=== PATIENT | female | born 1995 | race African-American/Black ===

== ENCOUNTER 2017-05-21 07:01 | Emergency (ER) | payer OTHER ==
[2017-05-21] MEDS ORDERED: IBUPROFEN 400 MG TAB ONE (07:31)
[2017-05-21] MEDS ORDERED: DEXAMETHASONE 4 MG/ML VIAL ONE (07:31)
--- NOTE | 2017-05-21 09:14 | EDPHYS ---
Physician Documentation [facility] Name: Glenna Beaver Age: 21 yrs Sex: Female : 1995 Arrival Date: 05/21/2017 Time: 07:04 Bed 16 Private MD: ED Physician Remi Yang HPI: 05/21 08:39 This 21 yrs old Black Female presents to ER via Ambulatory with complaints of Sore pm1 Throat. 08:39 The patient presents with sore throat. The patient describes throat pain as constant, pm1 scratchy. Onset: The symptoms/episode began/occurred 2 day(s) ago. Severity of symptoms: in the emergency department the symptoms are actually worse. Modifying factors: The symptoms are alleviated by nothing, the symptoms are aggravated by foods, swallowing, Patient's oral intake status: good Denies contact with similarly ill indivduals. Associated signs and symptoms: Pertinent positives: earache, Pertinent negatives chills, cough, fever, vomiting. The patient has experienced similar episodes in the past, a few times. The patient has not recently seen a physician. 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 - Social history:: Smoking status: Patient/guardian denies using tobacco. ROS: 08:50 Constitutional: Negative for fever, chills, and weight loss, Eyes: Negative for injury, pm1 pain, redness, and discharge. 08:50 Neck: Negative for injury, pain, and swelling, Cardiovascular: Negative for chest pain, palpitations, and edema, Respiratory: Negative for shortness of breath, cough, wheezing, and pleuritic chest pain, Abdomen/GI: Negative for abdominal pain, nausea, vomiting, diarrhea, and constipation, Back: Negative for injury and pain, : Negative for injury, bleeding, discharge, and swelling, MS/Extremity: Negative for injury and deformity, Skin: Negative for injury, rash, and discoloration, Neuro: Negative for headache, weakness, numbness, tingling, and seizure. 08:50 ENT: Positive for sore throat, Left ear pain, Negative for drainage from ear(s), dental pain, difficulty swallowing, difficulty handling secretions, hoarseness. Exam: 08:50 Constitutional: This is a well developed, well nourished patient who is awake, alert, pm1 and in no acute distress. Head/Face: Normocephalic, atraumatic. Eyes: Pupils equal round and reactive to light, extra-ocular motions intact. Lids and lashes normal. Conjunctiva and sclera are non-icteric and not injected. Cornea within normal limits. Periorbital areas with no swelling, redness, or edema. 08:50 Neck: Trachea midline, no thyromegaly or masses palpated, and no cervical lymphadenopathy. Supple, full range of motion without nuchal rigidity, or vertebral point tenderness. No Meningismus. Chest/axilla: Normal chest wall appearance and motion. Nontender with no deformity. No lesions are appreciated. Cardiovascular: Regular rate and rhythm with a normal S1 and S2. No gallops, murmurs, or rubs. Normal PMI, no JVD. No pulse deficits. Respiratory: Lungs have equal breath sounds bilaterally, clear to auscultation and percussion. No rales, rhonchi or wheezes noted. No increased work of breathing, no retractions or nasal flaring. Abdomen/GI: Soft, non-tender, with normal bowel sounds. No distension or tympany. No guarding or rebound. No evidence of tenderness throughout. Back: No spinal tenderness. No costovertebral tenderness. Full range of motion. Skin: Warm, dry with normal turgor. Normal color with no rashes, no lesions, and no evidence of cellulitis. MS/ Extremity: Pulses equal, no cyanosis. Neurovascular intact. Full, normal range of motion. 08:50 ENT: External ear(s): are unremarkable, Ear canal(s): are normal, TM's: are normal, Nose: is normal, Mouth: is normal, Posterior pharynx: Tonsils: bilaterally enlarged, with erythema, no exudate, no ulcerations, peritonsillar mass, is not appreciated, pooling of secretions, is not appreciated. 08:50 Neuro: Orientation: is normal, Motor: moves all fours, Gait: is steady, at a normal pace, without difficulty. Vital Signs: 07:12 BP 142 / 91; Pulse 105; Resp 16; Temp 99.3(O); Pulse Ox 97% on R/A; Weight 122.47 kg; ss Height 5 ft. 6 in. (167.64 cm); Pain 8/10; 09:27 BP 138 / 89; Pulse 95; Resp 18; Pulse Ox 100% on R/A; ss 07:12 Body Mass Index 43.58 (122.47 kg, 167.64 cm) ss MDM: 07:15 Patient medically screened. pm1 09:11 Data reviewed: vital signs. Data interpreted: Pulse oximetry: on room air is 97 %. pm1 Interpretation: normal. Counseling: I had a detailed discussion with the patient and/or guardian regarding: the historical points, exam findings, and any diagnostic results supporting the discharge/admit diagnosis, the need for outpatient follow up, to return to the emergency department if symptoms worsen or persist or if there are any questions or concerns that arise at home. 05/21 07:27 Order name: Strep; Complete Time: 08:31 pm1 05/21 07:27 Order name: [place] Screen Profile; Complete Time: 09:10 pm1 04 07:27 Order name: Flu; Complete Time: 08:31 pm1 Administered Medications: 07:27 Drug: Decadron 10 mg Route: IM; Site: left deltoid; hj 08:56 Follow up: Response: No adverse reaction hj 07:27 Drug: Ibuprofen 800 mg Route: PO; hj 08:57 Follow up: Response: No adverse reaction Disposition: 05/21/17 09:14 Discharged to Home. Impression: Streptococcal pharyngitis, Infectious mononucleosis. - Condition is Stable. - Discharge Instructions: Infectious Mononucleosis, Salt Water Gargle, Strep Throat. - Prescriptions for Zithromax Z- Ta 250 mg Oral Tablet - take 1 tablet by ORAL route as directed for 5 days Day 1 - take two (2) tablets one time. Day 2, 3, 4 , 5 take one (1) tablet once daily.; 6 tablet. - Medication Reconciliation Form, Thank You Letter, Antibiotic Education form. - Follow up: Emergency Department; When: As needed; Reason: Worsening of condition. Follow up: Private Physician; When: 2 - 3 days; Reason: Recheck today's complaints, Continuance of care, Re-evaluation by your physician. - Problem is new. - Symptoms have improved. Addendum: 05/26/2017 06:21 Co-signature as Attending Physician, Remi Yang MD. g s Signatures: Dispatcher [employer] Lissett Tim RN RN ss Ibrahima Gallegos RN RN hj Donal Dacosta, EXPELLER WORKER EXPELLER WORKER pm1 Remi Yang MD MD
--- NOTE | 2017-05-21 09:14 | ER ---
Nurse's Notes [facility] Name: Glenna Beaver Age: 21 yrs Sex: Female : 1995 Arrival Date: 05/21/2017 Time: 07:04 Bed 16 Private MD: Diagnosis: Streptococcal pharyngitis;Infectious mononucleosis Presentation: 05/21 07:09 Presenting complaint: Patient states: pain and swelling to back of throat x 2 days. ss Transition of care: patient was not received from another setting of care. Onset of symptoms was May 19, 2017. Care prior to arrival: None. 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 - Social history:: Smoking status: Patient/guardian denies using tobacco. Screenin:14 Abuse screen: Denies threats or abuse. Denies injuries from another. Nutritional hj screening: No deficits noted. Tuberculosis screening: No symptoms or risk factors identified. Fall Risk None identified. Assessment: 07:15 Pain: Complains of pain in throat. Respiratory: Airway is patent Respiratory effort is hj even, unlabored, Respiratory pattern is regular, symmetrical, Breath sounds are clear. EENT: Throat. 07:15 General: Appears in no apparent distress. uncomfortable, Behavior is calm, cooperative, hj appropriate for age. Neuro: Level of Consciousness is awake, alert, obeys commands, Oriented to person, place, time, situation, Appropriate for age. Cardiovascular: Capillary refill < 3 seconds Patient's skin is warm and dry. GI: No signs and/or symptoms were reported involving the gastrointestinal system. : No signs and/or symptoms were reported regarding the genitourinary system. Derm: Musculoskeletal: No signs and/or symptoms reported regarding the musculoskeletal system. Vital Signs: 07:12 BP 142 / 91; Pulse 105; Resp 16; Temp 99.3(O); Pulse Ox 97% on R/A; Weight 122.47 kg; ss Height 5 ft. 6 in. (167.64 cm); Pain 8/10; 09:27 BP 138 / 89; Pulse 95; Resp 18; Pulse Ox 100% on R/A; ss 07:12 Body Mass Index 43.58 (122.47 kg, 167.64 cm) ED Course: 07:04 Patient arrived in ED. es 07:11 Triage completed. 07:12 Arm band placed on right wrist. 07:13 Ibrahima Gallegos RN is Primary Nurse. 07:15 Donal Dacosta NP is PHCP. pm1 07:15 Remi Yang MD is Attending Physician. pm1 07:15 Patient has correct armband on for positive identification. Bed in low position. Call light in reach. Side rails up X 1. Adult w/ patient. 07:50 Flu and/or RSV swab sent to lab. Strep swab sent to lab. Inserted saline lock: 22 gauge mh5 in left antecubital area, using aseptic technique. Blood collected. 07:52 Flu Sent. 5 07:52 [place] Screen Profile Sent. 5 07:52 Strep Sent. 5 09:27 No provider procedures requiring assistance completed. IV discontinued, intact, bleeding controlled, No redness/swelling at site. Pressure dressing applied. Administered Medications: 07:27 Drug: Decadron 10 mg Route: IM; Site: left deltoid; hj 08:56 Follow up: Response: No adverse reaction 07:27 Drug: Ibuprofen 800 mg Route: PO; hj 08:57 Follow up: Response: No adverse reaction Outcome: 09:14 Discharge ordered by . pm1 09:27 Discharged to home ambulatory, with family. 09:27 Condition: stable 09:27 Discharge instructions given to patient, family, Instructed on discharge instructions, follow up and referral plans. medication usage, Demonstrated understanding of instructions, follow-up care, medications, Prescriptions given X 1. 09:27 Patient left the ED. Signatures: Estrella Sotomayor Shelby, RN RN Ibrahima Gallegos RN RN Donal Dacosta NP PUMP OPERATOR BYPRODUCTS pm1 Alicia Mccollum 5
[2017-05-21] MEDS ORDERED: DEXAMETHASONE 10 MG/ML VIAL ONE (09:17)
[2017-05-21] MEDS ORDERED: NA CHLORIDE 0.9% 1,000 ML ONE (09:17)
[2017-05-21] MEDS ORDERED: DIPHENHYDRAMINE 50 MG/ML VIAL ONE (09:17)
[2017-05-21] MEDS ORDERED: EPINEPHRINE/PF 1 MG/ML AMP ONE (09:17)
[2017-05-21 09:40] VITALS: BP 138/89; O2SAT 100
[2017-05-21 09:41] VITALS: TEMP 99.3
== END 2017-05-21 09:27 | disposition home or self-care (01) ==
LOC: ER 07:01
DX: J02.0 Streptococcal pharyngitis (principal); B27.90 Infectious mononucleosis, unspecified without complication; Z88.0 Allergy status to penicillin
CPT/HCPCS: 36415; 86308; 87081; 87804; 96372; 99284; J0171; J1100; J7030

== ENCOUNTER 2017-07-18 08:16 | Emergency (ER) | payer OTHER ==
[2017-07-18] MEDS ORDERED: HYDROCOD 2.5mg-ACETAMIN 108mg/5mL Soln ONE (09:15)
[2017-07-18] MEDS ORDERED: DEXAMETHASONE 10 MG/ML VIAL ONE (09:15)
[2017-07-18] MEDS ORDERED: AZITHROMYCIN 250 MG TAB ONE (09:15)
--- NOTE | 2017-07-18 10:06 | ER ---
Nurse's Notes [facility] Name: Glenna Beaver Age: 22 yrs Sex: Female : 1995 Arrival Date: 07/18/2017 Time: 08:18 Bed 12 Private MD: None, None Diagnosis: Acute pharyngitis Presentation: 07/18 08:21 Presenting complaint: Mother states: " She has had mono before and we think she may ph have it again." Pt reports sore throat and fever, denies N/V. Transition of care: patient was not received from another setting of care. Onset of symptoms was July 18, 2017. Risk Assessment: Do you want to hurt yourself or someone else? Patient reports no desire to harm self or others. Initial Sepsis Screen: Does the patient meet any 2 criteria? No. Patient's initial sepsis screen is negative. Does the patient have a suspected source of infection? No. Patient's initial sepsis screen is negative. Care prior to arrival: None. 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 - Social history:: Smoking status: Patient/guardian denies using tobacco. - Ebola Screening: : No symptoms or risks identified at this time. Screenin:24 Abuse screen: Denies threats or abuse. Denies injuries from another. Nutritional iw screening: No deficits noted. Tuberculosis screening: No symptoms or risk factors identified. Fall Risk None identified. Assessment: 09:23 General: Appears in no apparent distress. Behavior is calm, cooperative. Pain: iw Complains of pain in throat. Neuro: Level of Consciousness is awake, alert, obeys commands, Oriented to person, place, time, situation, Moves all extremities. Full function. Cardiovascular: Patient's skin is warm and dry. Respiratory: Airway is patent Respiratory effort is even, unlabored, Breath sounds are clear bilaterally. EENT: Throat has enlarged tonsils bilaterally with gag reflex present. 09:47 Reassessment: Patient appears in no apparent distress at this time. pt has had minimal iw improvement in pain, was able to swallow Zithromax pills. 10:11 Reassessment: pt able to drink 2 oz of apple juice, Samara, RUBBER COMPOUNDER notified, wants to hold iw patient until she can drink the full 4 oz of apple juice, pt is not vomiting. 10:50 Reassessment: pt finished drinking apple juice, reports mild improvement in ability to iw swallow. Vital Signs: 08:24 BP 142 / 76; Pulse 89; Resp 22; Temp 99.7; Pulse Ox 98% on R/A; Weight 117.93 kg; ph Height 5 ft. 6 in. (167.64 cm); Pain 10; 08:24 Body Mass Index 41.96 (117.93 kg, 167.64 cm) ph ED Course: 08:18 Patient arrived in ED. mr 08:19 None, None is Private Physician. mr 08:20 [facility] Islas [facility]C [facility] snw 08:20 Saurabh Jones MD is Attending Physician. snw 08:23 Triage completed. ph 08:24 Arm band placed on. ph 08:26 Judith Latif, RN is Primary Nurse. iw 09:48 No provider procedures requiring assistance completed. iw 10:04 Patient has correct armband on for positive identification. Call light in reach. Warm ph blanket given. 10:51 Patient did not have IV access during this emergency room visit. iw Administered Medications: 09:22 Drug: Decadron - Dexamethasone 10 mg {Note: given PO.} Route: IVP; Site: Other; iw 10:40 Follow up: Response: No adverse reaction iw 09:23 Drug: Lortab Liquid 15 ml Route: PO; iw 10:40 Follow up: Response: No adverse reaction; Pain is decreased iw 09:23 Drug: Zithromax 500 mg Route: PO; iw 10:00 Follow up: Response: No adverse reaction iw Outcome: 10:06 Discharge ordered by . snw 10:51 Discharged to home ambulatory, with family. iw 10:51 Condition: good 10:51 Discharge instructions given to patient, Instructed on discharge instructions, follow up and referral plans. medication usage, Demonstrated understanding of instructions, follow-up care, medications, Prescriptions given X 2. 10:51 Patient left the ED. iw Signatures: Samara Islas FNP-C TRUCK MECHANIC-Csnw Alicia Grier Irene, RN RN iw Edith Peter RN RN ph
--- NOTE | 2017-07-18 10:06 | EDPHYS ---
Physician Documentation [facility] Name: Glenna Beaver Age: 22 yrs Sex: Female : 1995 Arrival Date: 07/18/2017 Time: 08:18 Bed 12 Private MD: None, None ED Physician Saurabh Jones HPI: 07/18 09:15 This 22 yrs old Black Female presents to ER via Ambulatory with complaints of Sore snw Throat. 09:15 The patient presents with sore throat, dysphagia. The patient describes throat pain as snw constant, scratchy. Onset: The symptoms/episode began/occurred suddenly, 2 day(s) ago, and became worse and became persistent. Severity of symptoms: At their worst the symptoms were moderate. Associated signs and symptoms: The patient has no apparent associated signs or symptoms. The patient has not experienced similar symptoms in the past. The patient has not recently seen a physician. 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 - Social history:: Smoking status: Patient/guardian denies using tobacco. - Ebola Screening: : No symptoms or risks identified at this time. ROS: 09:15 Constitutional: Negative for fever, chills, and weight loss, Eyes: Negative for injury, snw pain, redness, and discharge, Neck: Negative for injury, pain, and swelling, Cardiovascular: Negative for chest pain, palpitations, and edema, Respiratory: Negative for shortness of breath, cough, wheezing, and pleuritic chest pain, Abdomen/GI: Negative for abdominal pain, nausea, vomiting, diarrhea, and constipation, Back: Negative for injury and pain, : Negative for injury, bleeding, discharge, and swelling, MS/Extremity: Negative for injury and deformity, Skin: Negative for injury, rash, and discoloration, Neuro: Negative for headache, weakness, numbness, tingling, and seizure. 09:15 ENT: Positive for difficulty swallowing, sore throat. Exam: 09:12 Constitutional: This is a well developed, well nourished patient who is awake, alert, snw and in no acute distress. Head/Face: Normocephalic, atraumatic. Eyes: Pupils equal round and reactive to light, extra-ocular motions intact. Lids and lashes normal. Conjunctiva and sclera are non-icteric and not injected. Cornea within normal limits. Periorbital areas with no swelling, redness, or edema. Neck: Trachea midline, no thyromegaly or masses palpated, and no cervical lymphadenopathy. Supple, full range of motion without nuchal rigidity, or vertebral point tenderness. No Meningismus. Chest/axilla: Normal chest wall appearance and motion. Nontender with no deformity. No lesions are appreciated. Cardiovascular: Regular rate and rhythm with a normal S1 and S2. No gallops, murmurs, or rubs. Normal PMI, no JVD. No pulse deficits. Respiratory: Lungs have equal breath sounds bilaterally, clear to auscultation and percussion. No rales, rhonchi or wheezes noted. No increased work of breathing, no retractions or nasal flaring. Abdomen/GI: Soft, non-tender, with normal bowel sounds. No distension or tympany. No guarding or rebound. No evidence of tenderness throughout. Back: No spinal tenderness. No costovertebral tenderness. Full range of motion. Skin: Warm, dry with normal turgor. Normal color with no rashes, no lesions, and no evidence of cellulitis. MS/ Extremity: Pulses equal, no cyanosis. Neurovascular intact. Full, normal range of motion. Neuro: Awake and alert, GCS 15, oriented to person, place, time, and situation. Cranial nerves II-XII grossly intact. Motor strength 5/5 in all extremities. Sensory grossly intact. Cerebellar exam normal. Normal gait. 09:12 ENT: External ear(s): are unremarkable, Ear canal(s): are normal, TM's: are normal, Examination of the other ear shows no obvious abnormality, Nose: is normal, Mouth: is normal, Posterior pharynx: Tonsils: with erythema, swelling, that is moderate, erythema, that is moderate, Voice: is normal. Vital Signs: 08:24 BP 142 / 76; Pulse 89; Resp 22; Temp 99.7; Pulse Ox 98% on R/A; Weight 117.93 kg; ph Height 5 ft. 6 in. (167.64 cm); Pain 10/10; 08:24 Body Mass Index 41.96 (117.93 kg, 167.64 cm) ph MDM: 08:25 Patient medically screened. snw 10:06 Data reviewed: vital signs, nurses notes. Data interpreted: Pulse oximetry: on room air snw is 98 %. Interpretation: normal. Counseling: I had a detailed discussion with the patient and/or guardian regarding: the historical points, exam findings, and any diagnostic results supporting the discharge/admit diagnosis, the presence of at least one elevated blood pressure reading (>120/80) during this emergency department visit, the need for outpatient follow up, to return to the emergency department if symptoms worsen or persist or if there are any questions or concerns that arise at home. Special discussion: I have referred the patient to see his PCP for further evaluation of high blood pressure. Based on the history and exam findings, there is no indication for further emergent testing or inpatient evaluation. I discussed with the patient/guardian the need to see the ENT specialist for further evaluation of the symptoms. I discussed with the patient/guardian the need to see the primary care provider for further evaluation of the symptoms. 07/18 08:20 Order name: Strep; Complete Time: 08:54 snw 07/18 08:52 Order name: Throat Culture EDMS Administered Medications: 09:22 Drug: Decadron - Dexamethasone 10 mg {Note: given PO.} Route: IVP; Site: Other; iw 10:40 Follow up: Response: No adverse reaction iw 09:23 Drug: Lortab Liquid 15 ml Route: PO; iw 10:40 Follow up: Response: No adverse reaction; Pain is decreased iw 09:23 Drug: Zithromax 500 mg Route: PO; iw 10:00 Follow up: Response: No adverse reaction iw Disposition: 18:43 Co-signature as Attending Physician, Saurabh Jones MD I agree with the assessment and kdr plan of care. Disposition: 07/18/17 10:06 Discharged to Home. Impression: Acute pharyngitis. - Condition is Stable. - Discharge Instructions: Pharyngitis, Rehydration, Adult. - Prescriptions for Prednisone 20 mg Oral Tablet - take 1 tablet by ORAL route once daily for 5 days; 5 tablet. Zithromax 500 mg Oral Tablet - take 1 tablet by ORAL route once daily for 5 days; 5 tablet. - Work release form, Medication Reconciliation Form, Thank You Letter, Antibiotic Education, Prescription Opioid Use form. - Follow up: Private Physician; When: 2 - 3 days; Reason: Recheck today's complaints, Continuance of care, Re-evaluation by your physician. Follow up: Emergency Department; When: As needed; Reason: Worsening of condition. Signatures: Dispatcher [employer] EDMS Saurabh Jones MD MD kdr Therrien, Shelly, GAME ARTIST-C GAME ARTIST-Csnw Judith Latif, GREGG RN iw Edith Peter RN RN ph Corrections: (The following items were deleted from the chart) 10:51 10:06 07/18/2017 10:06 Discharged to Home. Impression: Acute pharyngitis. Condition is iw Stable. Forms are Medication Reconciliation Form, Thank You Letter, Antibiotic Education, Prescription Opioid Use. Follow up: Private Physician; When: 2 - 3 days; Reason: Recheck today's complaints, Continuance of care, Re-evaluation by your physician. Follow up: Emergency Department; When: As needed; Reason: Worsening of condition. snw
[2017-07-18 10:56] VITALS: BP 142/76; TEMP 99.7; O2SAT 98
== END 2017-07-18 10:51 | disposition home or self-care (01) ==
LOC: ER 08:16
DX: J02.9 Acute pharyngitis, unspecified (principal); Z88.0 Allergy status to penicillin
CPT/HCPCS: 87070; 87081; 96374; 99283; J1100

== ENCOUNTER 2018-06-25 01:14 | Emergency (ER) | payer OTHER ==
--- NOTE | 2018-06-25 01:55 | ER ---
Nurse's Notes [facility] Name: Glenna Beaver Age: 22 yrs Sex: Female : 1995 Arrival Date: 06/25/2018 Time: 01:17 Bed 14 Private MD: Diagnosis: Cellulitis of chest wall Presentation: 06/25 01:21 Presenting complaint: Patient states: that she is having swelling and redness to piercing to chest. It was originally done 2 months ago. Transition of care: patient was not received from another setting of care. Onset of symptoms was June 24, 2018. Risk Assessment: Do you want to hurt yourself or someone else? Patient reports no desire to harm self or others. Initial Sepsis Screen: Does the patient meet any 2 criteria? No. Patient's initial sepsis screen is negative. Does the patient have a suspected source of infection? No. Patient's initial sepsis screen is negative. Care prior to arrival: None. 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 - Social history:: Smoking status: Patient/guardian denies using tobacco, Patient uses alcohol, occasionally. Patient/guardian denies using street drugs. - Ebola Screening: : Patient negative for fever greater than or equal to 101.5 degrees Fahrenheit, and additional compatible Ebola Virus Disease symptoms Patient denies exposure to infectious person Patient denies travel to an Ebola-affected area in the 21 days before illness onset. Screenin:24 Abuse screen: Denies threats or abuse. Nutritional screening: No deficits noted. fc Tuberculosis screening: No symptoms or risk factors identified. Fall Risk None identified. Assessment: 01:25 General: Appears in no apparent distress. comfortable, Behavior is calm, cooperative, rr5 appropriate for age. Pain: Denies pain. Neuro: Level of Consciousness is awake, alert, obeys commands, Oriented to person, place, time, situation, Appropriate for age. Cardiovascular: Capillary refill < 3 seconds Patient's skin is warm and dry. Respiratory: Airway is patent Respiratory effort is even, unlabored, Respiratory pattern is regular, symmetrical. GI: No signs and/or symptoms were reported involving the gastrointestinal system. : No signs and/or symptoms were reported regarding the genitourinary system. EENT: No signs and/or symptoms were reported regarding the EENT system. Derm: Skin temperature is warm Reports swelling and redness at midsternum due to piercing. Musculoskeletal: Capillary refill < 3 seconds, Range of motion: intact in all extremities. 02:35 Reassessment: Patient appears in no apparent distress at this time. Patient is alert, rr5 oriented x 3, equal unlabored respirations, skin warm/dry/pink. discharge instruction given and explained without complaints made. Patient denies pain at this time. Patient states feeling better. Patient states symptoms have improved. Vital Signs: 01:23 BP 132 / 101; Pulse 87; Resp 16; Temp 98.6(O); Pulse Ox 98% on R/A; Weight 117.93 kg (R); Height 5 ft. 6 in. (167.64 cm) (R); Pain 0/10; 02:33 BP 121 / 80; Pulse 85; Resp 17; Temp 98.5; Pulse Ox 99% on R/A; Pain 0/10; rr5 01:23 Body Mass Index 41.96 (117.93 kg, 167.64 cm) ED Course: 01:17 Patient arrived in ED. am2 01:22 Triage completed. 01:23 Arm band placed on Patient placed in an exam room, on a stretcher. 01:24 Patient has correct armband on for positive identification. Bed in low position. Call light in reach. 01:26 Jose Constantino RN is Primary Nurse. rr5 01:32 Cynthia Dacosta NP is PHCP. pm1 01:32 Evan Mckay MD is Attending Physician. pm1 02:20 foreign body removal at sternum area done aseptically by cynthia BURDEN. rr5 02:37 Patient did not have IV access during this emergency room visit. rr5 Administered Medications: 02:05 Drug: Lidocaine (1 %) 5 mg {Note: given by cynthia BURDEN.} Route: Infiltration; rr5 02:38 Follow up: Response: No adverse reaction rr5 Outcome: 01:54 Discharge ordered by . pm1 02:37 Discharged to home ambulatory. rr5 02:37 Condition: stable 02:37 Discharge instructions given to patient, Instructed on discharge instructions, follow up and referral plans. medication usage, Demonstrated understanding of instructions, follow-up care, medications, Prescriptions given X 1. 02:38 Patient left the ED. rr5 Signatures: Laya Corey RN RN fc Cynthia Dacosta NP AUTOMATIC LOG CUT OFF SAWYER pm1 Mylene Brown 2 Jose Constantino RN RN rr5
--- NOTE | 2018-06-25 01:55 | EDPHYS ---
Physician Documentation [facility] Name: Glenna Beaver Age: 22 yrs Sex: Female : 1995 Arrival Date: 06/25/2018 Time: 01:17 Bed 14 Private MD: ED Physician Evan Mckay HPI: 06/25 02:20 This 22 yrs old Black Female presents to ER via Ambulatory with complaints of piercing pm1 redness/swelling. 02:20 the patient presents with a swollen area of the mid-sternal area. Description: pm1 draining, raised. Onset: The symptoms/episode began/occurred 2 day(s) ago. Possible cause(s): piercing to chest. Associated signs and symptoms: Pertinent positives: drainage, Pertinent negatives: fever. Modifying factors: the symptoms are alleviated by nothing, the symptoms are aggravated by nothing. Severity of symptoms: in the emergency department the symptoms are actually worse. The patient has not experienced similar symptoms in the past. The patient has not recently seen a physician. Piercing to chest placed two months ago. 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 - Social history:: Smoking status: Patient/guardian denies using tobacco, Patient uses alcohol, occasionally. Patient/guardian denies using street drugs. - Ebola Screening: : Patient negative for fever greater than or equal to 101.5 degrees Fahrenheit, and additional compatible Ebola Virus Disease symptoms Patient denies exposure to infectious person Patient denies travel to an Ebola-affected area in the 21 days before illness onset. ROS: 02:20 Constitutional: Negative for fever, chills, and weight loss, Eyes: Negative for injury, pm1 pain, redness, and discharge, ENT: Negative for injury, pain, and discharge, Neck: Negative for injury, pain, and swelling, Cardiovascular: Negative for chest pain, palpitations, and edema, Respiratory: Negative for shortness of breath, cough, wheezing, and pleuritic chest pain, Abdomen/GI: Negative for abdominal pain, nausea, vomiting, diarrhea, and constipation, Back: Negative for injury and pain, MS/Extremity: Negative for injury and deformity. 02:20 Neuro: Negative for headache, weakness, numbness, tingling, and seizure. 02:20 Skin: Positive for swelling, of the mid-sternal area. Exam: 02:20 Constitutional: This is a well developed, well nourished patient who is awake, alert, pm1 and in no acute distress. Head/Face: Normocephalic, atraumatic. Neck: Trachea midline, no thyromegaly or masses palpated, and no cervical lymphadenopathy. Supple, full range of motion without nuchal rigidity, or vertebral point tenderness. No Meningismus. Chest/axilla: Normal chest wall appearance and motion. Nontender with no deformity. No lesions are appreciated. Cardiovascular: Regular rate and rhythm with a normal S1 and S2. No gallops, murmurs, or rubs. Normal PMI, no JVD. No pulse deficits. Respiratory: Lungs have equal breath sounds bilaterally, clear to auscultation and percussion. No rales, rhonchi or wheezes noted. No increased work of breathing, no retractions or nasal flaring. Abdomen/GI: Soft, non-tender, with normal bowel sounds. No distension or tympany. No guarding or rebound. No evidence of tenderness throughout. Back: No spinal tenderness. No costovertebral tenderness. Full range of motion. 02:20 Skin: Appearance: normal except for affected area, hypergranulation of tissue surrounding two piercings to mid-sternal chest. No redness present. No discharge or drainage noted. Vital Signs: 01:23 BP 132 / 101; Pulse 87; Resp 16; Temp 98.6(O); Pulse Ox 98% on R/A; Weight 117.93 kg fc (R); Height 5 ft. 6 in. (167.64 cm) (R); Pain 0/10; 02:33 BP 121 / 80; Pulse 85; Resp 17; Temp 98.5; Pulse Ox 99% on R/A; Pain 0/10; rr5 01:23 Body Mass Index 41.96 (117.93 kg, 167.64 cm) Procedures: 02:17 Foreign Body Removal: stud piercing on chest, from the mid-sternal area, by incising to pm1 remove, using lidocaine 1% without epinephrine to anesthesize the area, Dressinx4s were used to dress the wound, The patient tolerated the removal well. MDM: 01:32 Patient medically screened. pm1 01:46 Data reviewed: vital signs. Data interpreted: Pulse oximetry: on room air is 98 %. pm1 Interpretation: normal. Counseling: I had a detailed discussion with the patient and/or guardian regarding: the historical points, exam findings, and any diagnostic results supporting the discharge/admit diagnosis, the need for outpatient follow up, a general surgeon, a plastic surgeon, to return to the emergency department if symptoms worsen or persist or if there are any questions or concerns that arise at home. 06/25 02:16 Order name: Dressing - Wound; Complete Time: 02:21 pm1 06/25 02:16 Order name: Gloves, Sterile; Complete Time: 02:21 pm1 06/25 02:16 Order name: Setup Suture Tray; Complete Time: 02:21 pm1 Administered Medications: 02:05 Drug: Lidocaine (1 %) 5 mg {Note: given by cynthia BURDEN.} Route: Infiltration; rr5 02:38 Follow up: Response: No adverse reaction rr5 Disposition: 07:54 Co-signature as Attending Physician, Evan Mckay MD I agree with the assessment and wa plan of care. Disposition: 06/25/18 01:54 Discharged to Home. Impression: Cellulitis of chest wall. - Condition is Stable. - Discharge Instructions: Cellulitis, Adult, Foreign Body. - Prescriptions for Bactrim DS 800- 160 mg Oral Tablet - take 1 tablet by ORAL route every 12 hours for 10 days; 20 tablet. - Medication Reconciliation Form, Thank You Letter, Antibiotic Education, Prescription Opioid Use, Work release form form. - Follow up: Emergency Department; When: As needed; Reason: Worsening of condition. Follow up: Private Physician; When: 2 - 3 days; Reason: Recheck today's complaints, Continuance of care, Re-evaluation by your physician. - Problem is new. - Symptoms have improved. Signatures: Laya Corey RN RN Cynthia Juan NP FENCE RIDER pm1 Evan Mckay MD MD wa Roque, Raymond, RN RN rr5 Corrections: (The following items were deleted from the chart) 02:38 01:54 06/25/2018 01:54 Discharged to Home. Impression: Cellulitis of chest wall. rr5 Condition is Stable. Forms are Medication Reconciliation Form, Thank You Letter, Antibiotic Education, Prescription Opioid Use. Follow up: Emergency Department; When: As needed; Reason: Worsening of condition. Follow up: Private Physician; When: 2 - 3 days; Reason: Recheck today's complaints, Continuance of care, Re-evaluation by your physician. Problem is new. Symptoms have improved. pm1
[2018-06-25] MEDS ORDERED: LIDOCAINE 1% MPF 5 ML VIAL ONE (02:11)
[2018-06-25 07:21] VITALS: BP 121/80; TEMP 98.5; O2SAT 99
== END 2018-06-25 02:38 | disposition home or self-care (01) ==
LOC: ER 01:14
PROC: 0HC5XZZ Extirpation of Matter from Chest Skin, External Approach (ICD-10-PCS; principal; 2018-06-25)
DX: L03.313 Cellulitis of chest wall (principal); Z88.0 Allergy status to penicillin
CPT/HCPCS: 99283

== ENCOUNTER 2019-01-16 12:57 | Emergency (ER) | payer OTHER, SELFPAY ==
--- NOTE | 2019-01-16 15:03 | RAD REPORT ---
EXAM DESCRIPTION: RAD - Hand Right 3 View - 01/16/2019 2:07 pm CLINICAL HISTORY: Right hand pain status post injury FINDINGS: No fracture or dislocation is seen.
--- NOTE | 2019-01-16 15:20 | ER ---
Nurse's Notes [facility] Name: Glenna Beaver Age: 23 yrs Sex: Female : 1995 Arrival Date: 01/16/2019 Time: 13:05 Bed 7 Private MD: Diagnosis: Unspecified sprain of right thumb Presentation: 01/16 13:46 Presenting complaint: Patient states: Fell last night and caught self w/ R hand, this ph morning had swelling R thumb, redness and swelling noted, denies other injury. Transition of care: patient was not received from another setting of care. Onset of symptoms was January 16, 2019. Risk Assessment: Do you want to hurt yourself or someone else? Patient reports no desire to harm self or others. Initial Sepsis Screen: Does the patient meet any 2 criteria? No. Patient's initial sepsis screen is negative. Does the patient have a suspected source of infection? No. Patient's initial sepsis screen is negative. Care prior to arrival: None. 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 - Social history:: Smoking status: Patient/guardian denies using tobacco. - Ebola Screening: : No symptoms or risks identified at this time. Screenin:15 Abuse screen: Denies threats or abuse. Denies injuries from another. Nutritional hb screening: No deficits noted. Tuberculosis screening: No symptoms or risk factors identified. Fall Risk None identified. Assessment: 13:54 Reassessment: Patient appears in no apparent distress at this time. sg 14:45 Reassessment: Patient appears in no apparent distress at this time. Patient and/or hb family updated on plan of care and expected duration. Pain level reassessed. Patient is alert, oriented x 3, equal unlabored respirations, skin warm/dry/pink. 15:48 Reassessment: Patient appears in no apparent distress at this time. Patient and/or hb family updated on plan of care and expected duration. Pain level reassessed. Patient is alert, oriented x 3, equal unlabored respirations, skin warm/dry/pink. Vital Signs: 13:42 BP 132 / 95; Pulse 99; Resp 18; Temp 99.2; Pulse Ox 98% on R/A; Weight 113.4 kg; Height ph 5 ft. 6 in. (167.64 cm); Pain 9/10; 15:15 BP 126 / 86; Pulse 88; Resp 15; Pulse Ox 99% on R/A; hb 13:42 Body Mass Index 40.35 (113.40 kg, 167.64 cm) ph ED Course: 13:05 Patient arrived in ED. mr 13:45 Donal Dacosta NP is PHCP. pm1 13:45 Saurabh Jones MD is Attending Physician. pm1 13:47 Triage completed. ph 13:48 Arm band placed on Patient placed in an exam room. ph 13:52 Awaiting for x-ray. sg 14:08 Hand Right 3 View XRAY In Process Unspecified. EDMS 14:15 Patient has correct armband on for positive identification. Bed in low position. Call hb light in reach. Side rails up X 1. 14:35 Daryl Barahona, RN is Primary Nurse. sg 15:48 No provider procedures requiring assistance completed. Patient did not have IV access hb during this emergency room visit. Administered Medications: No medications were administered Outcome: 15:20 Discharge ordered by MD. pm1 15:48 Discharged to home ambulatory. hb 15:48 Condition: stable 15:48 Discharge instructions given to patient, Instructed on discharge instructions, follow up and referral plans. medication usage, Demonstrated understanding of instructions, follow-up care, medications, Prescriptions given X 2. 15:49 Patient left the ED. hb Signatures: Dispatcher [employer] EDAR Daryl Barahona RN RN Sabrina Grier Edith Peter RN RN Donal Dacosta NP MANAGER FRENCH pm1 Cortney Chin RN RN hb
--- NOTE | 2019-01-16 15:20 | EDPHYS ---
Physician Documentation [facility] Name: Glenna Beaver Age: 23 yrs Sex: Female : 1995 Arrival Date: 01/16/2019 Time: 13:05 Bed 7 Private MD: ED Physician Saurabh Jones HPI: 01/16 15:10 This 23 yrs old Black Female presents to ER via Ambulatory with complaints of Right pm1 Thumb pain. 17:53 The patient or guardian reports pain, swelling. The complaints affect the MCP of right pm1 thumb. Context: resulted from a fall, while walking. Onset: The symptoms/episode began/occurred yesterday. Modifying factors: The symptoms are alleviated by holding still, the symptoms are aggravated by movement. Associated signs and symptoms: Pertinent negatives: cyanosis distally, decreased sensation distally, numbness distally, tingling distally. Severity of symptoms: in the emergency department the symptoms are unchanged. The patient has not experienced similar symptoms in the past. It is unknown whether or not the patient has recently seen a physician. 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 - Social history:: Smoking status: Patient/guardian denies using tobacco. - Ebola Screening: : No symptoms or risks identified at this time. ROS: 17:53 Constitutional: Negative for fever, chills, and weight loss, Neck: Negative for injury, pm1 pain, and swelling, Cardiovascular: Negative for chest pain, palpitations, and edema, Respiratory: Negative for shortness of breath, cough, wheezing, and pleuritic chest pain, Abdomen/GI: Negative for abdominal pain, nausea, vomiting, diarrhea, and constipation, Back: Negative for injury and pain. 17:53 Skin: Negative for injury, rash, and discoloration, Neuro: Negative for headache, weakness, numbness, tingling, and seizure. 17:53 MS/extremity: Positive for pain, of the MCP of right thumb, Negative for decreased range of motion, deformity. Exam: 17:53 Constitutional: This is a well developed, well nourished patient who is awake, alert, pm1 and in no acute distress. Head/Face: Normocephalic, atraumatic. Neck: Trachea midline, no thyromegaly or masses palpated, and no cervical lymphadenopathy. Supple, full range of motion without nuchal rigidity, or vertebral point tenderness. No Meningismus. Chest/axilla: Normal chest wall appearance and motion. Nontender with no deformity. No lesions are appreciated. Cardiovascular: Regular rate and rhythm with a normal S1 and S2. No gallops, murmurs, or rubs. Normal PMI, no JVD. No pulse deficits. Respiratory: Lungs have equal breath sounds bilaterally, clear to auscultation and percussion. No rales, rhonchi or wheezes noted. No increased work of breathing, no retractions or nasal flaring. Back: No spinal tenderness. No costovertebral tenderness. Full range of motion. Skin: Warm, dry with normal turgor. Normal color with no rashes, no lesions, and no evidence of cellulitis. 17:53 Musculoskeletal/extremity: Extremities: grossly normal except: noted in the MCP of right thumb: pain, swelling, tenderness, There is no evidence of decreased ROM, deformity. Vital Signs: 13:42 BP 132 / 95; Pulse 99; Resp 18; Temp 99.2; Pulse Ox 98% on R/A; Weight 113.4 kg; Height ph 5 ft. 6 in. (167.64 cm); Pain 9/10; 15:15 BP 126 / 86; Pulse 88; Resp 15; Pulse Ox 99% on R/A; hb 13:42 Body Mass Index 40.35 (113.40 kg, 167.64 cm) ph MDM: 13:54 Patient medically screened. pm1 15:19 Data reviewed: vital signs. Data interpreted: Pulse oximetry: on room air is 98 %. pm1 Interpretation: normal. Counseling: I had a detailed discussion with the patient and/or guardian regarding: the historical points, exam findings, and any diagnostic results supporting the discharge/admit diagnosis, radiology results, the need for outpatient follow up, a hand specialist, a orthopedic surgeon, to return to the emergency department if symptoms worsen or persist or if there are any questions or concerns that arise at home. 01/16 13:50 Order name: Hand Right 3 View XRAY; Complete Time: 15:10 pm1 01/16 15:18 Order name: Thumb Spica Splint; Complete Time: 15:27 pm1 Administered Medications: No medications were administered Disposition: 01/17 07:22 Co-signature as Attending Physician, Saurabh Jones MD I agree with the assessment and kdr plan of care. Disposition: 01/16/19 15:20 Discharged to Home. Impression: Unspecified sprain of right thumb. - Condition is Stable. - Discharge Instructions: Cast or Splint Care, Adult, Thumb Sprain. - Prescriptions for Tylenol- Codeine #3 300-30 mg Oral Tablet - take 2 tablets by ORAL route every 6 hours As needed; 20 tablet. Diclofenac Sodium 75 mg Oral Tablet Sustained Release - take 1 tablet by ORAL route 2 times per day; 30 tablet. - Work release form, Medication Reconciliation Form, Thank You Letter, Antibiotic Education, Prescription Opioid Use form. - Follow up: Emergency Department; When: As needed; Reason: Worsening of condition. Follow up: Private Physician; When: 2 - 3 days; Reason: Recheck today's complaints, Continuance of care, Re-evaluation by your physician. - Problem is new. - Symptoms have improved. Signatures: Dispatcher [employer] EDMS Saurabh Jones MD MD [facility] Edith Peter RN RN Donal Dacosta, B[employer] PROFESSIONAL pm1 Cortney Chin RN RN Corrections: (The following items were deleted from the chart) 01/16 15:49 15:20 01/16/2019 15:20 Discharged to Home. Impression: Unspecified sprain of right hb thumb. Condition is Stable. Forms are Medication Reconciliation Form, Thank You Letter, Antibiotic Education, Prescription Opioid Use. Follow up: Emergency Department; When: As needed; Reason: Worsening of condition. Follow up: Private Physician; When: 2 - 3 days; Reason: Recheck today's complaints, Continuance of care, Re-evaluation by your physician. Problem is new. Symptoms have improved. pm1
[2019-01-16 17:33] VITALS: TEMP 99.2
[2019-01-16 17:35] VITALS: BP 126/86; O2SAT 99
== END 2019-01-16 15:49 | disposition home or self-care (01) ==
LOC: ER 12:57
DX: S63.601A Unspecified sprain of right thumb, initial encounter (principal); W18.30XA Fall on same level, unspecified, initial encounter; Y93.9 Activity, unspecified; Y92.9 Unspecified place or not applicable; Z88.0 Allergy status to penicillin
CPT/HCPCS: 99283

== ENCOUNTER 2019-08-07 11:09 | Emergency (ER) | payer BC, OTHER ==
[2019-08-07] MEDS ORDERED: ACETAMINOPHEN 500 MG TAB ONE (12:03)
--- NOTE | 2019-08-07 15:06 | EDPHYS ---
Physician Documentation [facility] Name: Glenna Beaver Age: 24 yrs Sex: Female : 1995 Arrival Date: 08/07/2019 Time: 11:12 Bed 13 Private MD: ED Physician Hector Carvalho HPI: 08/06 12:28 This 24 yrs old Black Female presents to ER via Ambulatory with complaints of R/O COVID.pm1 12:28 The patient or guardian reports cough, mostly dry. Onset: The symptoms/episode pm1 began/occurred 3 day(s) ago. Severity of symptoms: in the emergency department the symptoms are actually worse. Modifying factors: The symptoms are alleviated by nothing, the symptoms are aggravated by nothing. Associated signs and symptoms: Pertinent positives: Chills, fever. The patient has not experienced similar symptoms in the past. The patient has not recently seen a physician. Patient will positive exposure to covid. 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 - Social history:: Smoking status: Patient denies any tobacco usage or history of. ROS: 12:28 Eyes: Negative for injury, pain, redness, and discharge, Neck: Negative for injury, pm1 pain, and swelling. 12:28 Cardiovascular: Negative for chest pain, palpitations, and edema. 12:28 Abdomen/GI: Negative for abdominal pain, nausea, vomiting, diarrhea, and constipation, Back: Negative for injury and pain, MS/Extremity: Negative for injury and deformity, Skin: Negative for injury, rash, and discoloration, Neuro: Negative for headache, weakness, numbness, tingling, and seizure. 12:28 Constitutional: Positive for body aches, chills, fever, Negative for poor PO intake. 12:28 ENT: Positive for sore throat, Negative for drainage from ear(s), ear pain. 12:28 Respiratory: Positive for cough, Negative for shortness of breath, wheezing. Exam: 12:28 Constitutional: This is a well developed, well nourished patient who is awake, alert, pm1 and in no acute distress. Head/Face: Normocephalic, atraumatic. 12:28 Skin: Warm, dry with normal turgor. Normal color with no rashes, no lesions, and no evidence of cellulitis. MS/ Extremity: Pulses equal, no cyanosis. Neurovascular intact. Full, normal range of motion. 12:28 Cardiovascular: Exam negative for acute changes, Rate: normal, Rhythm: regular, Pulses: no pulse deficits are appreciated. 12:28 Respiratory: Exam negative for acute changes, respiratory distress, shortness of breath, wheezing. 12:28 Abdomen/GI: Inspection: abdomen appears normal, Palpation: abdomen is soft and non-tender, in all quadrants. 12:28 Neuro: Exam negative for acute changes, Orientation: is normal, Mentation: is normal, Motor: is normal, moves all fours. Vital Signs: 11:27 BP 134 / 73; Pulse 107; Resp 16 S; Temp 101(O); Pulse Ox 98% on R/A; Weight 122.47 kg ca1 (R); Height 5 ft. 6 in. (167.64 cm) (R); 13:30 BP 127 / 75; Pulse 97; Resp 17; Pulse Ox 98% ; bp 15:20 BP 135 / 69; Pulse 89; Resp 17; Temp 98.9; Pulse Ox 99% ; bp 11:27 Body Mass Index 43.58 (122.47 kg, 167.64 cm) ca1 MDM: 12:06 Patient medically screened. pm1 15:05 Data reviewed: vital signs. Data interpreted: Pulse oximetry: on room air is 98 %. pm1 Interpretation: normal. Counseling: I had a detailed discussion with the patient and/or guardian regarding: the historical points, exam findings, and any diagnostic results supporting the discharge/admit diagnosis, lab results, the need for outpatient follow up, to return to the emergency department if symptoms worsen or persist or if there are any questions or concerns that arise at home. 08/06 12:28 Order name: COVID-19 pm1 08/06 12:28 Order name: Flu; Complete Time: 14:54 pm1 08/06 12:28 Order name: Strep; Complete Time: 14:36 pm1 08/06 12:28 Order name: Droplet/Contact Precautions; Complete Time: 12:50 pm1 08/06 14:32 Order name: Throat Culture EDIA 08/06 12:28 Order name: Labs collected and sent; Complete Time: 13:00 pm1 Administered Medications: 11:54 Drug: Tylenol 1000 mg Route: PO; ca1 15:22 Follow up: Response: Temperature is decreased bp Disposition: 15:30 Co-signature as Attending Physician, Hector Carvalho MD. rn Disposition: 08/07/19 15:05 Discharged to Home. Impression: Acute upper respiratory infection, unspecified. - Condition is Stable. - Discharge Instructions: Antibiotic Resistance, Upper Respiratory Infection, Adult. - Prescriptions for Guaifenesin AC 10- 100 mg/5 mL Oral Liquid - take 10 milliliter by ORAL route every 4 hours As needed; 240 milliliter. - Work release form, Medication Reconciliation Form, Thank You Letter, Antibiotic Education, Prescription Opioid Use form. - Follow up: Emergency Department; When: As needed; Reason: Worsening of condition. Follow up: Private Physician; When: 2 - 3 days; Reason: Recheck today's complaints, Continuance of care, Re-evaluation by your physician. - Problem is new. - Symptoms have improved. Signatures: Dispatcher [employer] [facility] Hector Carvalho MD MD rn Donal Dacosta, PARK SERVICES SPECIALIST PARK SERVICES SPECIALIST pm1 Deepak Han RN RN bp Theresa Dooley RN RN ca1 Corrections: (The following items were deleted from the chart) 15:22 15:05 08/07/2019 15:05 Discharged to Home. Impression: Acute upper respiratory bp infection, unspecified. Condition is Stable. Forms are Medication Reconciliation Form, Thank You Letter, Antibiotic Education, Prescription Opioid Use. Follow up: Emergency Department; When: As needed; Reason: Worsening of condition. Follow up: Private Physician; When: 2 - 3 days; Reason: Recheck today's complaints, Continuance of care, Re-evaluation by your physician. Problem is new. Symptoms have improved. pm1
--- NOTE | 2019-08-07 15:06 | ER ---
Nurse's Notes [facility] Name: Glenna Beaver Age: 24 yrs Sex: Female : 1995 Arrival Date: 08/07/2019 Time: 11:12 Bed 13 Private MD: Diagnosis: Acute upper respiratory infection, unspecified Presentation: 08/06 11:27 Chief complaint: Patient states: Friday night, cough and chills, worse on ca1 morning. Fever , Htemp 102.8F. Denies SOB. Tylenol taken at 0800. Coronavirus screen: Patient reports a cough. Patient denies shortness of breath or difficulty breathing. Patient reports a measured and/or subjective temperature greater than 100.4F. Patient denies travel on a cruise ship or to a country the [facility] currently lists as an affected area. Patient denies contact with known and/or suspected case of COVID-19. Surgical mask in place, instructed to keep at all times and distance self from others in the lobby. Verbalized understanding. Ebola Screen: Patient negative for fever greater than or equal to 101.5 degrees Fahrenheit, and additional compatible Ebola Virus Disease symptoms Patient denies exposure to infectious person. Patient denies travel to an Ebola-affected area in the 21 days before illness onset. No symptoms or risks identified at this time. Initial Sepsis Screen: Does the patient meet any 2 criteria? No. Patient's initial sepsis screen is negative. Does the patient have a suspected source of infection? No. Patient's initial sepsis screen is negative. Risk Assessment: Do you want to hurt yourself or someone else? Patient reports no desire to harm self or others. Onset of symptoms was August 07, 2019. 11: Method Of Arrival: Ambulatory ca1 11:27 Acuity: LAMINE 3 ca1 Triage Assessment: 12:20 General: Appears in no apparent distress. uncomfortable, ill, Behavior is cooperative, bp appropriate for age, anxious. Pain: Complains of pain in right foot. EENT: No deficits noted. Neuro: No deficits noted. Cardiovascular: No deficits noted. Respiratory: No deficits noted. GI: No signs and/or symptoms were reported involving the gastrointestinal system. : No signs and/or symptoms were reported regarding the genitourinary system. Derm: No deficits noted. Musculoskeletal: No deficits noted. 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 - Social history:: Smoking status: Patient denies any tobacco usage or history of. Screenin:08 Abuse screen: Denies threats or abuse. Denies injuries from another. Nutritional ca1 screening: No deficits noted. Tuberculosis screening: No symptoms or risk factors identified. Fall Risk None identified. Assessment: 12:08 General: Appears in no apparent distress. comfortable, Behavior is calm, cooperative, ca1 appropriate for age, Reports chills for fever for > 3 days, feeling ill for. Pain: Complains of pain in all over. Neuro: Level of Consciousness is awake, alert, obeys commands, Oriented to person, place, time, situation. Cardiovascular: Heart tones S1 S2 present Capillary refill < 3 seconds Patient's skin is warm and dry. Rhythm is sinus tachycardia. Respiratory: Reports cough that is Airway is patent Respiratory effort is even, unlabored, Respiratory pattern is regular, symmetrical, Breath sounds are clear bilaterally. GI: Abdomen is round non-distended, Bowel sounds present X 4 quads. Abd is soft and non tender X 4 quads. : No signs and/or symptoms were reported regarding the genitourinary system. EENT: No signs and/or symptoms were reported regarding the EENT system. Derm: Skin is intact, is healthy with good turgor, Skin is pink, warm \T\ dry. Musculoskeletal: Circulation, motion, and sensation intact. Capillary refill < 3 seconds. 14:00 Reassessment: LAB RESULTS PENDING FOR DISPO. bp 15:19 Reassessment: PT D/C HOME AMBULATORY WITH FAMILY, DX WITH ACUTE URI. bp Vital Signs: 11:27 BP 134 / 73; Pulse 107; Resp 16 S; Temp 101(O); Pulse Ox 98% on R/A; Weight 122.47 kg ca1 (R); Height 5 ft. 6 in. (167.64 cm) (R); 13:30 BP 127 / 75; Pulse 97; Resp 17; Pulse Ox 98% ; bp 15:20 BP 135 / 69; Pulse 89; Resp 17; Temp 98.9; Pulse Ox 99% ; bp 11:27 Body Mass Index 43.58 (122.47 kg, 167.64 cm) ca1 ED Course: 11:12 Patient arrived in ED. ag5 11:30 Triage completed. ca1 11:32 Arm band placed on right wrist. ca1 12:03 Donal Dacosta NP is PHCP. pm1 12:03 Hector Carvalho MD is Attending Physician. pm1 12:08 Theresa Dooley RN is Primary Nurse. ca1 12:08 Patient has correct armband on for positive identification. Placed in gown. Bed in low ca1 position. Call light in reach. Side rails up X 1. Pulse ox on. NIBP on. 15:20 No provider procedures requiring assistance completed. Patient did not have IV access bp during this emergency room visit. Administered Medications: 11:54 Drug: Tylenol 1000 mg Route: PO; ca1 15:22 Follow up: Response: Temperature is decreased bp Outcome: 15:05 Discharge ordered by . pm1 15:20 Discharged to home ambulatory, with family. bp 15:20 Condition: stable 15:20 Discharge instructions given to patient, Instructed on discharge instructions, follow up and referral plans. medication usage, Demonstrated understanding of instructions, follow-up care, medications, Prescriptions given X 1. 15:22 Patient left the ED. bp Addendum: 08/10/2019 13:11 Addendum: Other Dr. Jones notified patient of positive COVID results. Pt verbalizes s s understanding importance of follow up instructions and to return to ER for any worsening of symptoms. Signatures: Lissett Luis RN RN Donal Dacosta NP MERCHANT TAILOR pm1 Deepak Han RN RN bp Theresa Dooley RN RN [facility] [employer] ag5 Corrections: (The following items were deleted from the chart) 08/06 11:33 11:27 Coronavirus screen: Surgical mask placed on patient. Patient moved to private ca1 room, placed in contact and droplet isolation with eye protection until further assessment. Patient reports a cough. Patient denies shortness of breath or difficulty breathing. Patient reports a measured and/or subjective temperature greater than 100.4F. Patient denies travel on a cruise ship or to a country the [facility] currently lists as an affected area. Patient denies contact with known and/or suspected case of COVID-19. ca1
[2019-08-07 15:44] VITALS: BP 135/69; TEMP 98.9; O2SAT 99
== END 2019-08-07 15:22 | disposition home or self-care (01) ==
LOC: ER 11:09
DX: U07.1 COVID-19 (principal); J06.9 Acute upper respiratory infection, unspecified; Z88.0 Allergy status to penicillin
CPT/HCPCS: 87070; 87081; 87804 ×2; 99284; U0001

== ENCOUNTER 2021-03-15 21:10 | Emergency (ER) | payer BC, SELFPAY ==
[2021-03-15] MEDS ORDERED: BUPIVACAINE 0.5% PF 10 ML VIAL ONE (21:50)
[2021-03-15] MEDS ORDERED: DOXYCYCLINE 100 MG CAP PO ONE (22:38)
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
--- NOTE | 2021-03-15 22:43 | EDPHYS ---
Physician Documentation [facility] Name: Glenna Beaver Age: 25 yrs Sex: Female : 1995 Arrival Date: 03/15/2021 Time: 21:15 Bed 15 Private MD: ED Physician Lidia Tinoco HPI: 03/15 22:36 This 25 yrs old Black Female presents to ER via Ambulatory with complaints of Other, jmm tore finger nail from finger. 22:36 The patient or guardian reports injury. Onset: The symptoms/episode began/occurred jmm acutely, 4 day(s) ago. Modifying factors: The symptoms are alleviated by nothing, the symptoms are aggravated by nothing. Associated signs and symptoms: Pertinent negatives: cyanosis distally, decreased sensation distally, fever, nausea, numbness distally, tingling distally, vomiting. The patient has not experienced similar symptoms in the past. Patient complains of left fingernail pain after accidently removing it while moving a cough. The nail displaced hitting the wall. Denies other injury. . 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 - Social history:: Smoking status: Patient denies any tobacco usage or history of. ROS: 22:38 Constitutional: Negative for fever, chills, and weight loss, Cardiovascular: Negative jmm for chest pain, palpitations, and edema, Respiratory: Negative for shortness of breath, cough, wheezing, and pleuritic chest pain. 22:38 MS/extremity: Positive for injury or acute deformity. 22:38 All other systems are negative. Exam: 22:38 Constitutional: This is a well developed, well nourished patient who is awake, alert, jmm and in no acute distress. Head/Face: atraumatic. Eyes: EOMI, no conjunctival erythema appreciated ENT: Moist Mucus Membranes Neck: Trachea midline, Supple Chest/axilla: Normal chest wall appearance and motion. Cardiovascular: Regular rate and rhythm. No edema appreciated Respiratory: Normal respirations, no respiratory distress appreciated Abdomen/GI: Non distended, soft Back: Normal ROM Skin: General appearance color normal 22:38 Musculoskeletal/extremity: nail avulsion noted to the left 5th nail. . 22:38 Skin: Appearance: Color: normal in color, no erythema, drainage, or discharge appreciated from the left 5th finger. 22:38 Neuro: Orientation: is normal, Mentation: is normal, Memory: is normal. 22:38 Psych: Behavior/mood is pleasant, cooperative. Vital Signs: 21:32 BP 126 / 75; Pulse 93; Resp 16 S; Temp 99.4(TE); Pulse Ox 100% on R/A; Weight 127.01 kg bb (R); Height 5 ft. 7 in. (170.18 cm) (R); 23:08 BP 122 / 72; Pulse 89; Resp 15; Pulse Ox 100% on R/A; ll3 21:32 Body Mass Index 43.85 (127.01 kg, 170.18 cm) Procedures: 22:38 Performed Nail Removal. An alcohol swab was used to clean the base of the fifth m phalanx. 3 mL of 0.5% Marcaine was injected. Good anesthesia was achieved. The nail was then removed using a needle motor driver. Patient tolerated the procedure well. MDM: 21:45 Patient medically screened. [facility] 22:38 Data reviewed: vital signs, nurses notes. Counseling: I had a detailed discussion with [facility] the patient and/or guardian regarding: the historical points, exam findings, and any diagnostic results supporting the discharge/admit diagnosis, the need for outpatient follow up, to return to the emergency department if symptoms worsen or persist or if there are any questions or concerns that arise at home. ED course: Due to the length of time from injury, the nail was not reinserted. I did discuss the possibility of abnormal healing to the area due to this. Patient understood. Patient will be given a course of antibiotics and advised to follow-up with hand for further evaluation. Patient otherwise given strict return precautions. Administered Medications: 22:02 Drug: Marcaine (bupivacaine) (0.5 %) 10 ml {Note: Administered by PA. 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 Exp: ll3 06/30/2022. Lot #: [id number]. } Route: IM; Site: right deltoid; 23:10 Follow up: Response: No adverse reaction ll3 Disposition: 03/16 07:34 Co-signature as Attending Physician, Lidia Tinoco MD I agree with the assessment and sp3 plan of care. Disposition Summary: 03/15/21 22:42 Discharge Ordered Location: Home [facility] Condition: Stable jm Diagnosis - Left 5th Nail Avulsion [facility] Followup: [facility] - With: Stephane Hameed MD - When: 2 - 3 days - Reason: Recheck today's complaints, Continuance of care, Re-evaluation by your physician Discharge Instructions: - Discharge Summary Sheet [facility] - Nail Avulsion [facility] Forms: - Medication Reconciliation Form [facility] - Thank You Letter [facility] - Antibiotic Education [facility] - Prescription Opioid Use [facility] Prescriptions: - Doxycycline Hyclate 100 mg Oral Tablet - take 1 tablet by ORAL route every 12 hours; 20 tablet; Refills: 0, Product [facility] Selection Permitted Signatures: Fuentes Moura PA PA jmm Ballard, Brenda, RN Lidia Lopez MD MD sp3 Carmen Torres RN RN 3
[2021-03-15] MEDS ORDERED: TETANUS & DIPHTHERIA TOX,ADULT 0.5 ML VIAL ONE (22:56)
[2021-03-15 23:42] VITALS: TEMP 99.4; O2SAT 100
[2021-03-15 23:43] VITALS: BP 122/72
== END 2021-03-15 23:10 | disposition home or self-care (01) ==
LOC: ER 21:10
PROC: 0HDQXZZ Extraction of Finger Nail, External Approach (ICD-10-PCS; principal; 2021-03-15)
DX: S61.305A Unspecified open wound of left ring finger with damage to nail, initial encounter (principal); W22.8XXA Striking against or struck by other objects, initial encounter; Z23 Encounter for immunization
CPT/HCPCS: 90471; 90714; 99283

== ENCOUNTER 2021-12-18 20:28 | Emergency (ER) | payer OTHER, SELFPAY ==
[2021-12-18] MEDS ORDERED: TETANUS & DIPHTHERIA TOX,ADULT 0.5 ML VIAL ONE (20:45)
[2021-12-18] MEDS ORDERED: NA CHLORIDE 0.9% 1,000 ML ONE (20:45)
[2021-12-18] MEDS ORDERED: FENTANYL CITR 100 MCG/2 ML ONE (20:45)
[2021-12-18 21:11] LABS: Absolute Lymphocytes (CBC) 1.9 K/uL (0.7-4.9); Hematocrit 40.4 % (36.0-45.0); Lymphocytes % 30.6 % (15.3-44.8); MCV 90.7 fL (80-100); MPV 8.3 fL (7.6-11.3); RBC Red Blood Cell Count 4.45 M/uL (3.86-4.86)
[2021-12-18 21:18] LABS: Protime INR 1.08
[2021-12-18] MEDS ORDERED: TETRACAINE HCL 0.5% 4ML OPTH ONE (21:20)
[2021-12-18] MEDS ORDERED: FLUORESCEIN SODIUM 1 MG/WRAP ONE (21:20)
[2021-12-18 21:31] LABS: Potassium 3.7 mmol/L (3.5-5.1)
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
[2021-12-18] MEDS ORDERED: CLINDAMYCIN 900MG/D5W 900 MG/50 ML IVPB IV ONE (22:06)
[2021-12-18] MEDS ORDERED: HYDROCODONE/APAP 7.5/325 MG TAB ONE (22:06)
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
[2021-12-18] MEDS ORDERED: LIDOCAINE 1% MPF 5 ML VIAL ONE (22:49)
[2021-12-19 01:04] VITALS: TEMP 98.6
[2021-12-19 01:10] VITALS: BP 118/90; O2SAT 95
--- NOTE | 2021-12-19 10:54 | RAD REPORT ---
EXAM DESCRIPTION: RAD - Hand Right 3 View - 12/19/2021 12:13 am Hand Right 3 View CLINICAL HISTORY: 26 years Female, PAIN COMPARISON: Right hand radiograph dated 01/16/2019 IMPRESSION: No fracture or dislocation. Joint spaces are preserved. Soft tissues are unremarkable. Retained radiopaque foreign body projecting adjacent to the first metacarpal. Electronically signed by: Omer Gallo DO 12/19/2021 12:48 AM HAND BINDER CUTTER Due to temporary technical issues with the PACS/Fluency reporting system, reports are being signed by the in house radiologists without review as a courtesy to insure prompt reporting. The interpreting radiologist is fully responsible for the content of the report.
== END 2021-12-19 00:34 | disposition home or self-care (01) ==
LOC: ER 20:28
PROC: 0JQ10ZZ Repair Face Subcutaneous Tissue and Fascia, Open Approach (ICD-10-PCS; principal; 2021-12-19)
DX: S02.2XXA Fracture of nasal bones, initial encounter for closed fracture (principal); S02.40DA Maxillary fracture, left side, initial encounter for closed fracture; S01.81XA Laceration without foreign body of other part of head, initial encounter; V40.5XXA Car driver injured in collision with pedestrian or animal in traffic accident, initial encounter; Z23 Encounter for immunization; Z88.0 Allergy status to penicillin; Z88.1 Allergy status to other antibiotic agents
CPT/HCPCS: 96365; 96361; 85025; 80048; 36415; 86900; 86850; 85610; 86901; 85730; 70450; 72125; 71260; 70486; 76377; 74177; 73130; 90471; 90714; 99284; 12011; Q9967; J2001; J3010; J7030

== ENCOUNTER → 2023-01-29 | Emergency (ER) | payer OTHER ==
[~2023-01-29] MED LIST: DIAZEPAM 5 MG TABLET ONE; HYDROCODONE/APAP 10/325 TAB ONE; KETOROLAC 30 MG/ML INJ ONE; PROMETHAZINE 25 MG TABLET ONE
--- OUTSIDE RECORDS SUMMARY | 2023-01-29 02:10 | XMS REPORT | Continuity of Care Document ---
Author Name Unknown Address [address] [facility] [address] [place] [address] [email or web address] Address [address] [facility] [place] [address] Care Team Providers Care Sizing Machine And Drier Operator Name Role Phone PETER MILAN Attending Clinician Unavailable PETER MILAN Admitting Clinician Unavailable Encounters Start Date/Time End Date/Time Encounter Type Admission Type Attending Clinicians Care Facility Care Department Encounter ID Source 2022-04-03 06:27:00 2022-04-05 14:00:00 Inpatient E PETER MILAN [id number]
[2023-01-29 04:00] LABS: Specific Gravity 1.017 (1.005-1.030)
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
[2023-01-29 09:11] VITALS: BP 115/56; TEMP 98.1; O2SAT 97
--- NOTE | 2023-01-29 13:31 | RAD REPORT ---
EXAM CT PELVIS WITHOUT IV CONTRAST CLINICAL HISTORY: Pelvic pain after injury COMPARISON: None. 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 FINDINGS: There is no bowel obstruction. Urinary bladder is unremarkable. There is no free fluid. Th ere uterus is poorly seen. Skeleton: There are no acute osseous findings. No suspicious bony lesions. IMPRESSION: No definite acute fracture. Electronically signed by: Hermelindo Hurley MD 01/29/2023 05:39 AM VIDEO PRODUCER Due to temporary technical issues with the PACS/Fluency reporting system, reports are being signed by the in house radiologists without review as a courtesy to insure prompt reporting. The interpreting radiologist is fully responsible for the content of the report.
--- NOTE | 2023-01-29 13:42 | RAD REPORT ---
EXAM DESCRIPTION: CT LUMBAR SPINE WITHOUT IV CONTRAST CLINICAL HISTORY: Spinal injury COMPARISON: None. 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 FINDINGS: There is no acute fracture. Vertebral body heights are preserved. There is grade 1 retroli sthesis of L5 on S1. Disc spaces are maintained. Soft tissues are unremarkable. IMPRESSION: No acute fracture or subluxation. Electronically signed by: Hermelindo Hurley MD 01/29/2023 05:35 AM DOUBLE END TENONER SETTER Due to temporary technical issues with the PACS/Fluency reporting system, reports are being signed by the in house radiologists without review as a courtesy to insure prompt reporting. The interpreting radiologist is fully responsible for the content of the report.
== END ==
LOC: ER 02:06
DX: S39.012A Strain of muscle, fascia and tendon of lower back, initial encounter (principal); S30.0XXA Contusion of lower back and pelvis, initial encounter; Z88.0 Allergy status to penicillin; Z88.1 Allergy status to other antibiotic agents
CPT/HCPCS: 81025; 72131; 72192; Q0169; 96372; 99284

== ENCOUNTER 2024-04-24 04:10 | Emergency (ER) | payer OTHER ==
[2024-04-24] MEDS ORDERED: ONDANSETRON 4 MG/2 ML VIAL ONE (04:47)
[2024-04-24] MEDS ORDERED: KETOROLAC 30 MG/ML INJ ONE (04:47)
[2024-04-24] MEDS ORDERED: NA CHLORIDE 0.9% 1,000 ML ONE (04:48)
[2024-04-24 04:52] LABS: Absolute Eosinophils 0.1 K/uL (0-0.5); Absolute Lymphocytes (CBC) 2.7 K/uL (0.7-4.9); Absolute Monocytes 0.6 K/uL (0.1-1.3); Basophils % 0.4 % (0-1.3); Eosinophils % 0.8 % (0-4.4); Hematocrit 42.4 % (36.0-45.0); Hemoglobin 14.5 g/dL (12.0-15.0); Lymphocytes % 32.1 % (15.3-44.8); MCH 30.4 pg (27.0-35.0); MCHC 34.2 g/dL (32.0-36.0); Monocytes % 7.2 % (3.3-12.3); Neutrophils % 59.5 % (41.7-73.7); Nucleated Red Blood Cells % 0.1 % (0-0); Platelets 363 thou/uL (152-406); RBC Red Blood Cell Count 4.77 M/uL (3.86-4.86); Red Cell Distribution Width 13.5 % (12.1-15.2)
[2024-04-24 05:00] LABS: Specific Gravity 1.028 (1.005-1.030); Sqamous Epithelial None Seen /HPF (None Seen); Urine Bacteria None Seen /HPF (<20); Urine Bilirubin NEGATIVE (Negative); Urine Blood 3+ (OVER) (Negative); Urine Clarity Extremely Turbid (Clear); Urine Color Brown (Yellow); Urine Crystals Unidentified Many /HPF (None Seen); Urine Culture Reflex Order NOT NEEDED; Urine Glucose NEGATIVE (Negative); Urine Ketones NEGATIVE (Negative); Urine Microscopic Reflex YN ORDER UMIC; Urine Nitrite NEGATIVE (Negative); Urine Protein 2+ (Negative); Urine RBC >50 /HPF (None Seen); Urine Urobilinogen Normal (Normal); Urine pH 5.5 (5.0-7.0)
[2024-04-24 05:02] LABS: Specific Gravity 1.028 (1.005-1.030)
[2024-04-24 05:16] LABS: Albumin 3.7 g/dL (3.4-5.0); Albumin/Globulin Ratio 0.8 (1.1-1.8); Anion Gap 11.7 mEq/L (5.0-15.0); Bilirubin Total 0.3 mg/dL (0.2-1.0); Globulin 4.7 g/dL (2.3-3.5); Potassium 3.7 mEq/L (3.5-5.1); Protein, Total 8.4 g/dL (6.4-8.2)
[2024-04-24] MEDS ORDERED: METOCLOPRAMIDE 10 MG/2mL INJ ONE (05:43)
[2024-04-24 05:56] LABS: Influenza A Ag Negative; Influenza B Ag Negative; SARS-CoV-2 Antigen Rapid Res Negative (Negative)
--- NOTE | 2024-04-24 06:01 | EDPHYS ---
Physician Documentation [facility] Name: Glenna Beaver Age: 28 yrs Sex: Female : 1995 Arrival Date: 04/24/2024 Time: 04:10 Bed 15 Private MD: ED Physician Rigoberto Schuler HPI: 04/24 04:39 This 28 yrs old Black Female presents to ER via Ambulatory with complaints of Abdominal ec2 Pain, Nausea/Vomiting/Diarrhea. 04:39 Patient arrives today for evaluation of nausea, vomiting, diarrhea. Patient reports 2 ec2 days of symptoms. Reports decreased p.o. intake due to persistent nausea vomiting diarrhea. No urinary complaints. No cough and cold symptoms. Patient reports previous abdominal surgeries including appendectomy. Reports LMP is today.. 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 - Infectious Disease History:: Denies. - Social history:: Smoking status: Patient denies any tobacco usage or history of. ROS: 04:39 Constitutional: as per hpi ec2 Exam: 04:39 Constitutional: GEN: NAD Head: atraumatic Eyes: EOMI Ears: External ears are ec2 normal. CV: regular rate LUNGS: no respiratory distress ABD: non-distended, obese, soft, not guarding, not rigid SKIN: no evidence of rashes MSK: no evidence of trauma Vital Signs: 04:21 BP 160 / 90; Pulse 88; Resp 18; Pulse Ox 98% ; Weight 142.88 kg; Height 5 ft. 6 in. ; kb3 Pain 8/10; 06:10 BP 137 / 78; Pulse 64; Resp 17; Pulse Ox 99% on R/A; Pain 0/10; rg5 04:21 Body Mass Index 50.84 (142.88 kg, 167.64 cm) kb3 04:21 Pain Scale: Adult kb3 06:10 Pain Scale: Adult rg5 Gabbie Coma Score: 05:05 Eye Response: spontaneous(4). Motor Response: obeys commands(6). Verbal Response: rg5 oriented(5). Total: 15. MDM: 04:14 Medical Screening Exam initiated ec2 04:39 Data reviewed: vital signs, nurses notes. ED course: Patient arrives today for ec2 abdominal discomfort along with nausea, vomiting, diarrhea. Examination yields abdominal findings as above. Will obtain lab work, urine studies. DDx include processes such as gastroenteritis, UTI, .. 05:38 ED course: Metabolic profile is reassuring. CBC is reassuring. Lipase is within normal ec2 ranges. testing negative. Urine study is pertinent for leuk esterase.. 05:41 ED course: On reassessment patient reports improvement in her abdominal pain, reports ec2 some residual nausea, will give the patient Reglan. Ultimately suspect probably gastroenteritis. Will discharge home with reassuring lab work and have the patient follow-up PCP. Will prescribe patient Robaxin for her pain. Patient is currently menstruating as well.. 04/24 04:33 Order name: CBC with Diff; Complete Time: 05:37 ec2 04/24 04:33 Order name: CMP; Complete Time: 05:37 ec2 04/24 04:33 Order name: Lipase; Complete Time: 05:37 ec2 04/24 04:33 Order name: Test, Urine; Complete Time: 05:37 ec2 04/24 04:33 Order name: Urinalysis w/ reflexes; Complete Time: 05:37 ec2 04/24 04:33 Order name: COVID-19 Ag + Flu A+B Ag; Complete Time: 06:00 ec2 04/24 04:33 Order name: IV Saline Lock; Complete Time: 04:49 ec2 04/24 04:33 Order name: Labs collected and sent; Complete Time: 04:35 ec2 Administered Medications: 04:40 Drug: TORadol - Ketorolac IVP 15 mg IVP once Route: IVP; Site: right forearm; rg5 05:31 Follow up: Response: No adverse reaction; Pain is decreased rg5 04:40 Drug: Ondansetron IVP 4 mg IVP once; over 2 minutes Route: IVP; Site: right forearm; rg5 05:31 Follow up: Response: No adverse reaction rg5 04:40 Drug: NS 0.9% IV 1000 ml IV at 1 bolus Per protocol; to be given as a bolus over 60 rg5 minutes Route: IV; Rate: 1 bolus; Site: right forearm; 06:09 Follow up: IV Status: Completed infusion; IV Intake: 1000ml rg5 05:45 Drug: metoCLOPramide IVP 10 mg IVP once; over 1 to 2 minutes Route: IVP; Site: right rg5 forearm; 06:09 Follow up: Response: No adverse reaction rg5 Disposition Summary: 04/24/24 06:00 Discharge Ordered Notes: Location: Home ec2 Condition: Stable ec2 Diagnosis - Abdominal pain, Generalized ec2 - Nausea with vomiting, unspecified ec2 Followup: ec2 - With: Private Physician - When: - Reason: Re-evaluation by your physician Discharge Instructions: - Discharge Summary Sheet ec2 - Abdominal Pain, Adult ec2 Forms: - Medication Reconciliation Form ec2 - Antibiotic Education ec2 - Prescription Opioid Use ec2 - Patient Portal Instructions ec2 - Leadership Thank You Letter ec2 - Work release form kmf Prescriptions: - Compazine 10 mg Oral Tablet - take 1 tablet ORAL route every 8 hours As needed; 10 tablet; Refills: 0, ec2 Product Selection Permitted - methocarbamol 500 mg Oral tablet - take 2 tablets ORAL route 4 times per day; 20 tablet; Refills: 0, Product ec2 Selection Permitted Signatures: Dispatcher [employer] EDMaura Montalvo RN RN kb3 Rigoberto Schuler MD MD ec2 Timothy York RN RN rg5 Corrections: (The following items were deleted from the chart) 04:25 04:22 Home Meds: hctz; kb3 kb3 04:33 04:33 CBC+H.LAB.BRZ ordered. EDMS EDMS 04:33 04:33 COMPREHENSIVE METABOLIC PANEL+C.LAB.BRZ ordered. EDMS EDMS 04:33 04:33 LIPASE+C.LAB.BRZ ordered. EDMS EDMS 04:33 04:33 Test, Urine+UC.LAB.BRZ ordered. EDMS EDMS 04:33 04:33 Urinalysis+U.LAB.BRZ ordered. EDMS EDMS 04:33 04:33 COVID-19 Ag + Flu A+B Ag+I.LAB.BRZ ordered. EDMS EDMS
--- NOTE | 2024-04-24 06:01 | ER ---
Nurse's Notes [facility] Name: Glenna Beaver Age: 28 yrs Sex: Female : 1995 Arrival Date: 04/24/2024 Time: 04:10 Bed 15 Private MD: Diagnosis: Abdominal pain, Generalized;Nausea with vomiting, unspecified Presentation: 04/24 04:21 Chief complaint: Patient states: generalized abdominal pain, N/V/D x2 days. Coronavirus kb3 screen: Vaccine status: Patient reports being unvaccinated. Client denies travel out of the [place] in the last 14 days. Ebola Screen: Patient negative for fever greater than or equal to 101.5 degrees Fahrenheit, and additional compatible Ebola Virus Disease symptoms Patient denies exposure to infectious person. Patient denies travel to an Ebola-affected area in the 21 days before illness onset. Initial Sepsis Screen: Does the patient meet any 2 criteria? No. Patient's initial sepsis screen is negative. Does the patient have a suspected source of infection? No. Patient's initial sepsis screen is negative. Risk Assessment: Do you want to hurt yourself or someone else? Patient reports no desire to harm self or others. Onset of symptoms was April 22, 2024. 04:21 Method Of Arrival: Ambulatory kb3 04:21 Acuity: LAMINE 3 kb3 Triage Assessment: 04:22 General: Appears in no apparent distress. comfortable, Behavior is calm, cooperative. kb3 Pain: Complains of pain in abdomen Pain does not radiate. Pain currently is 8 out of 10 on a pain scale. GI: Abdomen is obese, Abd is soft Reports lower abdominal pain, upper abdominal pain, diarrhea, nausea, vomiting. OFFICE LEAD: 04:22 LMP 04/22/2024, unknown kb3 Historical: - Allergies: 04:22 Amoxicillin; kb3 04:22 PENICILLINS; kb3 - Home Meds: 04:22 lisinopril 10 mg oral tablet 1 tab daily [Active]; Metformin Oral After menstrual cycle kb3 ends [Active]; atorvastatin 20 mg oral tablet 1 tab daily [Active]; - PMHx: 04:22 HTN; Hypercholesterolemia; kb3 - PSHx: 04:22 Appendectomy; kb3 - Immunization history:: Adult Immunizations up to date, Client reports receiving the 1st dose of the Covid vaccine, Last tetanus immunization: up to date. - Infectious Disease History:: Denies. - Social history:: Smoking status: Patient denies any tobacco usage or history of. Screenin:05 [facility] ED Fall Risk Assessment (Adult) History of falling in the last 3 months, rg5 including since admission No falls in past 3 months (0 pts) Confusion or Disorientation No (0 pts) Intoxicated or Sedated No (0 pts) Impaired Gait No (0 pts) Mobility Assist Device Used No (0 pt) Altered Elimination No (0 pt) Score/Fall Risk Level 0 - 2 = Low Risk Oriented to surroundings, Maintained a safe environment, Hourly rounding (assess needs \T\ fall precautionary measures) done. Abuse screen: Denies threats or abuse. Nutritional screening: No deficits noted. Tuberculosis screening: No symptoms or risk factors identified. Assessment: 05:05 General: Appears in no apparent distress. comfortable, Behavior is calm, cooperative, rg5 appropriate for age. Neuro: Level of Consciousness is awake, alert, obeys commands, Oriented to person, place, time. Cardiovascular: Patient's skin is warm and dry. Respiratory: Airway is patent Trachea midline Respiratory effort is even, unlabored, Respiratory pattern is regular, symmetrical. GI: Reports upper abdominal pain, cramping, nausea. GI: Abdomen is round obese, Abd is soft Reports upper abdominal pain, nausea. : No signs and/or symptoms were reported regarding the genitourinary system. EENT: No deficits noted. Derm: Skin is intact, Skin is dry, Skin is normal, Skin temperature is warm. Musculoskeletal: Circulation, motion, and sensation intact. Range of motion: intact in all extremities. 06:11 Reassessment: Patient and/or family updated on plan of care and expected duration. Pain rg5 level reassessed. Patient is alert, oriented x 3, equal unlabored respirations, skin warm/dry/pink. Patient states feeling better. Patient states symptoms have improved. Vital Signs: 04:21 BP 160 / 90; Pulse 88; Resp 18; Pulse Ox 98% ; Weight 142.88 kg; Height 5 ft. 6 in. ; kb3 Pain 8/10; 06:10 BP 137 / 78; Pulse 64; Resp 17; Pulse Ox 99% on R/A; Pain 0/10; rg5 04:21 Body Mass Index 50.84 (142.88 kg, 167.64 cm) kb3 04:21 Pain Scale: Adult kb3 06:10 Pain Scale: Adult rg5 Gabbie Coma Score: 05:05 Eye Response: spontaneous(4). Motor Response: obeys commands(6). Verbal Response: rg5 oriented(5). Total: 15. ED Course: 04:13 Patient arrived in ED. [email or web address] 04:14 Rigoberto Schuler MD is Attending Physician. ec2 04:16 Timothy York, GREGG is Primary Nurse. rg5 04:22 Triage completed. kb3 04:22 Arm band placed on right wrist. Patient placed in an exam room, on a stretcher. kb3 04:45 No provider procedures requiring assistance completed. Inserted saline lock: 20 gauge rg5 in right forearm, using aseptic technique. Blood collected. Flushed with 10 mL NS. 04:45 Patient maintains SpO2 saturation greater than 95% on room air. rg5 05:05 Patient has correct armband on for positive identification. Bed in low position. Call rg5 light in reach. Side rails up X 1. Door closed. Noise minimized. Warm blanket given. 06:10 Provided Education on: post er care. rg5 06:10 IV discontinued, bleeding controlled, No redness/swelling at site. Pressure dressing rg5 applied. Administered Medications: 04:40 Drug: TORadol - Ketorolac IVP 15 mg IVP once Route: IVP; Site: right forearm; rg5 05:31 Follow up: Response: No adverse reaction; Pain is decreased rg5 04:40 Drug: Ondansetron IVP 4 mg IVP once; over 2 minutes Route: IVP; Site: right forearm; rg5 05:31 Follow up: Response: No adverse reaction rg5 04:40 Drug: NS 0.9% IV 1000 ml IV at 1 bolus Per protocol; to be given as a bolus over 60 rg5 minutes Route: IV; Rate: 1 bolus; Site: right forearm; 06:09 Follow up: IV Status: Completed infusion; IV Intake: 1000ml rg5 05:45 Drug: metoCLOPramide IVP 10 mg IVP once; over 1 to 2 minutes Route: IVP; Site: right rg5 forearm; 06:09 Follow up: Response: No adverse reaction rg5 Medication: 05:05 VIS not applicable for this client. rg5 Intake: 06:09 IV: 1000ml; Total: 1000ml. rg5 Outcome: 06:00 Discharge ordered by . ec2 06:23 Discharged to home ambulatory, rg5 06:23 Condition: stable 06:23 Discharge instructions given to patient, Instructed on discharge instructions, follow up and referral plans. Demonstrated understanding of instructions, follow-up care, medications, Prescriptions given X 2, 06:23 Patient left the ED. rg5 Signatures: Janet Tanner [email or web address] Maura Valentin, RN RN kb3 Rigoberto Schuler MD MD ec2 Timothy York, GREGG RN rg5 Corrections: (The following items were deleted from the chart) 04:25 04:22 Home Meds: hctz; kb3 kb3
[2024-04-24 06:29] VITALS: BP 137/78; O2SAT 99
== END 2024-04-24 06:23 | disposition home or self-care (01) ==
LOC: ER 04:10
DX: R10.84 Generalized abdominal pain (principal); R11.2 Nausea with vomiting, unspecified; Z11.52 Encounter for screening for COVID-19
CPT/HCPCS: 96361; 85025; 81001; 36415; 81025; 83690; 80053; 96375; 96374; 99284; 87428; J2765; J2405; J7030